=== PATIENT | female | born 1955 | race Caucasian/White ===

== ENCOUNTER → 2017-07-14 | Outpatient (CLI) | payer MEDICAID ==
[~2017-07-14] MED LIST: IOPAMIDOL (ISOVUE-300) 100 ML BTL ONE
== END ==
LOC: CIMAGING 10:17
DX: N26.1 Atrophy of kidney (terminal) (principal)
CPT/HCPCS: 74177-PO; Q9967

== ENCOUNTER → 2017-12-10 | Outpatient (CLI) | payer MEDICAID | LOC: FIMAGING 09:18 | PROVIDERS: ATTEND Physician Assistant | DX: K59.00 Constipation, unspecified (principal) ==